=== PATIENT | female | born 1970 | race Caucasian/White ===

== ENCOUNTER → 2017-03-30 | Outpatient (CLI) | payer OTHER ==
[~2017-03-30] MED LIST: CARDIZEM CD240 MG PO; COZAAR 50 MG TA50 M2 PO
--- NOTE | ~2017-03-30 | EKG ---
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 DICKSON : 1970 Requested By: Antonio Baeza Order Number: [id number] MD: Santiago Roach Measurements Intervals [place] Rate: 85 P: 26 VT: 162 QRS: -38 QRSD: 85 T: 23 QT: 368 QTc: 438 Interpretive Statements Sinus rhythm Abnormal R-wave progression, late transition Left ventricular hypertrophy Compared to ECG 12/25/2016 10:32:23 No significant change was found Electronically Signed On 03-31-2017 8:08:00 CDT by Santiago Roach [email or web address] <ELECTRONICALLY SIGNED> By: Santiago Roach MD, [facility] 03/31/17 [phone] Santiago Roach MD, [facility] /EPI
[2017-03-30 16:52] LABS: ABSOLUTE NEUTROPHILS 7.2 thou/uL (1.4-8.2); EOSINOPHILS 1.6 % (0.0-3.0); HEMATOCRIT 37.2 % (37.0-47.0); HEMOGLOBIN 12.6 gm/dL (12.0-15.0); LYMPHOCYTES 26.4 % (24.0-44.0); MANUAL DIFF NO; MCH 29.3 pg (26.0-34.0); MCHC 33.8 g/dL (28.0-37.0); MCV 86.7 fL (80.0-100.0); MONOCYTES 7.7 % (1.0-8.0); PLATELET COUNT 346 thou/uL (150-400); POLYS 63.3 % (36.0-66.0); RBC 4.29 mil/uL (4.20-5.00); RDW 14.8 % (10.5-14.5); WBC 11.4 thou/uL (4.0-11.0)
== END ==
LOC: RAD 15:12
PROVIDERS: Surgery
DX: I10 Essential (primary) hypertension (principal); E66.01 Morbid (severe) obesity due to excess calories; G47.33 Obstructive sleep apnea (adult) (pediatric); K21.9 Gastro-esophageal reflux disease without esophagitis

== ENCOUNTER 2017-05-28 05:21 | Inpatient (IN) | payer OTHER ==
[~2017-05-28] VITALS: Ht 175.3 cm; Wt 149.2 kg
--- NOTE | ~2017-05-28 | S ---
[facility] [place] [address] SURGICAL PATH RPT PROCEDURE Name: NUSRAT SCOTT Room #: 307-P ADM IN M.R.#: [id number] Admission: 05/28/17 Date of : 70 Discharge: Report #: [id number] Path Case #: [id number] PATHOLOGY REPORT COLLECTION DATE: 05/28/2017 RECEIVED DATE: 05/28/2017 SUBMITTING PHYS: Dr. Antonio Baeza OTHER PHYS: SPECIMEN(S) RECEIVED: A.Gastric sleeve * * * * * * * * * * * * FINAL DIAGNOSIS: Stomach, gastric sleeve, partial sleeve gastrectomy: - No significant diagnostic abnormalities present, history of morbid obesity. PATHOLOGIST: Ya Hoover M.D. REPORT ELECTRONICALLY SIGNED BY: Ya Hoover M.D. DATE/TIME: 05/29/2017 15:19 * * * * * * * * * * * * GROSS PATHOLOGY: The specimen is received in formalin, labeled "Nusrat Scott, gastric sleeve". Received is elongated, partial gastrectomy specimen measuring 19.4 cm in length and up to 3.2 cm in diameter. A long stapled resection margin is identified. The serosal surface displays a wrinkled, pale pinktan appearance. Opening the specimen reveals a normal, pale tanpink, folded mucosa with no polypoid adhesions or solid masses identified. Character Actress sections are submitted in cassettes A1A3. (SNA; 05/28/2017) CLINICAL HISTORY: Morbid obesity INITIAL CPT CODE(S): A; 73802 Professional services performed by [facility] at [facility] [address] [place] [address] Technical services performed by [facility] at [address] [place] [address]. [facility] [address] [place] [address] SURGICAL PATH RPT PROCEDURE Name: NUSRAT SCOTT Room #: 307-P ADM IN M.R.#: [id number] Admission: 05/28/17 Date of : 70 Discharge: Report #: [id number] Path Case #: [id number] Farheen Granda [facility] [address] [address] PHONE: [phone] DIRECTOR: Sancho Stover M.D. * * * END OF REPORT * * *
[~2017-05-28 05:21] MED LIST changes: +ADULT ONE DAI200 MCG PO; +ZOLOFT50 MG PO
[2017-05-28 07:38] VITALS: BP 156/97
[2017-05-28 11:35] VITALS: BP 141/82
[2017-05-28 16:00] VITALS: BP 150/94
[2017-05-28 20:00] VITALS: BP 135/75
[2017-05-29 04:00] VITALS: BP 158/100
[2017-05-29 04:56] LABS: CALCIUM 7.9 mg/dL (8.5-10.1); CREATININE 0.8 mg/dL (0.6-1.0); POTASSIUM 3.8 mmol/L (3.5-5.1)
[2017-05-29 05:01] LABS: ABSOLUTE NEUTROPHILS 9.9 thou/uL (1.4-8.2); BASOPHILS 0.2 % (0.0-2.0); HEMATOCRIT 32.3 % (37.0-47.0); LYMPHOCYTES 11.8 % (24.0-44.0); MCH 29.7 pg (26.0-34.0); MCV 87.4 fL (80.0-100.0); MONOCYTES 8.5 % (1.0-8.0); PLATELET COUNT 306 thou/uL (150-400); POLYS 79.5 % (36.0-66.0); WBC 12.4 thou/uL (4.0-11.0)
[2017-05-29 05:03] LABS: MANUAL DIFF NO
[2017-05-29 08:00] VITALS: BP 147/74
[2017-05-29] MEDS ORDERED: ZOFRAN ODT4 MG DISSOLVE (08:50)
[2017-05-29] MEDS ORDERED: HYDROCODONE-ACE15 ML PO (08:50)
[2017-05-29 16:06] VITALS: BP 147/74
== END 2017-05-29 16:23 | disposition short-term general hospital (02) | DRG 621 ==
LOC: OR 05:21 → TBA 05:22 → GI 08:48 → EDSTATUS 08:59 → OR 08:59 → 3N 11:36 → OR 11:36 → 3N 05-29 16:23
PROVIDERS: Surgery
PROC: 0DJ08ZZ Inspection of Upper Intestinal Tract, Via Natural or Artificial Opening Endoscopic (ICD-10-PCS; principal; 2017-05-28)
PROC: 0DB64Z3 Excision of Stomach, Percutaneous Endoscopic Approach, Vertical (ICD-10-PCS; principal; 2017-05-28)
DX: E66.01 Morbid (severe) obesity due to excess calories (principal); K21.9 Gastro-esophageal reflux disease without esophagitis; I10 Essential (primary) hypertension; F32.9 Major depressive disorder, single episode, unspecified; G47.33 Obstructive sleep apnea (adult) (pediatric); M19.90 Unspecified osteoarthritis, unspecified site; Z79.899 Other long term (current) drug therapy; Z88.2 Allergy status to sulfonamides; Z68.42 Body mass index [BMI] 45.0-49.9, adult; Z88.1 Allergy status to other antibiotic agents; Z90.710 Acquired absence of both cervix and uterus; Z90.49 Acquired absence of other specified parts of digestive tract; Z81.8 Family history of other mental and behavioral disorders; Z80.9 Family history of malignant neoplasm, unspecified
CPT/HCPCS: 10795; 50010; 50101; 50222; 50249; 50555; 50558; 50739; 50740; 50962; 51436; 51437; 52182; 52265; 53307; 53311; 54022; 54118; 55245; 56462; 56525; 56526; 62110; 62900; 64031; 70005

== ENCOUNTER → 2018-08-09 | Outpatient (CLI) | payer OTHER ==
[~2018-08-09] VITALS: Ht 175.3 cm; Wt 104.3 kg
[~2018-08-09] MED LIST changes: +HYDROCODONE-ACE15 ML PO; +OMEPRAZOLE 20 M20 M1 PO; +VITAMIN D350000 UNIT PO; +WOMEN'S DAILY1 EAC2 PO; +ZOFRAN ODT4 MG DISSOLVE
--- NOTE | ~2018-08-09 | PATH ---
[facility] [place] [address] PATHOLOGY RPT PROCEDURE Name: BRANDINUSRAT Room #: REG ISAK AriasCorettaFatou.#: [id number] Admission: 08/09/18 Date of : 70 Discharge: Report #: [id number] Path Case #: [id number] [facility] Accession Number: [id number] . 01 Material submitted: . PART A: BX OF ANTRUM R/O H PYLORI PART B: BX OF DISTAL ESOPHGAUS R/O EOSINOPHILIC ESOPHAGITIS PART C: BX OF MID-ESOPHAGUS R/O EOSINOPHILIC ESOPHAGITIS . 01 Clinical history: . Pre-OP DX: Dysphagia, GERD Post-OP DX: Hiatal hernia, gastritis, esophagitis . 02 Diagnosis: A. Gastric mucosa, antrum, rule out H. pylori, endoscopic biopsy: - Mild chronic inflammation with features of reactive gastropathy. - Negative for intestinal metaplasia or atrophy. - Negative for Helicobacter pylori (properly-controlled immunohistochemical stain performed). . B. Gastric cardia-type mucosa, distal esophagus, endoscopic biopsy: - Moderate chronic inflammation. - No increase in eosinophils within the epithelium. . C. Squamous mucosa, mid-esophagus, endoscopic biopsy: - Mild esophagitis with 6-7 eosinophils / high power field (please see comment). - Negative for intestinal metaplasia or dysplasia. . (IUV:mml; 08/10/18) QL/08/10/2018 . 02 Comment: Examination of the esophageal biopsy tissue shows squamous mucosa with a marked number of intraepithelial eosinophils. Although eosinophils are commonly encountered in inflammation due to reflux esophagitis, the eosinophils in the present specimen are numerous, exceeding 5-6/hpf. Apart from reflux esophagitis, potential etiologies for the histologic pattern include allergic and collagen vascular diseases, fungal or parasitic infections, and eosinophilic esophagitis (idiopathic). Please correlate with clinical and endoscopic findings. . (IUV:mml; 08/10/18) . 02 Electronically signed: . Ya Hoover MD, Pathologist NPI- [id number] [place] [address] PATHOLOGY RPT PROCEDURE Name: NUSRAT SCOTT Room #: REG CLLesly Siegel#: [id number] Admission: 08/09/18 Date of : 70 Discharge: Report #: [id number] Path Case #: [id number] . 01 Gross description: . A. Received in formalin labeled "Scott, Nusrat, BX of antrum, rule out H. pylori," are 2 segments of sin soft tissue measuring 0.8 x 0.3 x 0.2 cm in aggregate dimensions and ranging from 0.3 to 0.5 cm in maximum dimension. The specimen is entirely submitted in cassette A1. . B. Received in formalin labeled "Nusrat Scott, BX of distal esophagus, rule out EOE," is a single segment of sin soft tissue measuring 0.5 cm in maximum dimension. The specimen is entirely submitted in cassette B1. . C. Received in formalin labeled "Nusrat Scott, BX of mid esophagus, rule out EOE," are 3 segments of sin soft tissue measuring 0.6 x 0.4 x 0.1 cm in aggregate dimensions and ranging from 0.3 to 0.5 cm in maximum dimension. The specimen is submitted entirely in cassette C1. (TSD; 08/09/2018) TOB/TOB . 02 Pathologist provided ICD-10: K29.50, K31.9, K20.9 . 02 CPT . 548977, 147327, 041847, L31552 Specimen Comment: A courtesy copy of this report has been sent to Specimen Comment: [phone], , . Specimen Comment: Report sent to , and Specimen Comment: A duplicate report has been generated due to demographic updates. Performed at: [address] [facility], [place], [place] [id number] MD Silver Lares MD Phone: [phone] Performed at: [address] [facility] [id number] MD Ya Hoover MD Phone: [phone]
== END | disposition home or self-care (01) ==
LOC: GI 11:56
DX: K29.50 Unspecified chronic gastritis without bleeding (principal); K21.0 Gastro-esophageal reflux disease with esophagitis; K44.9 Diaphragmatic hernia without obstruction or gangrene; I10 Essential (primary) hypertension; G47.33 Obstructive sleep apnea (adult) (pediatric); E66.01 Morbid (severe) obesity due to excess calories; Z88.2 Allergy status to sulfonamides; Z98.84 Bariatric surgery status; Z88.8 Allergy status to other drugs, medicaments and biological substances; Z90.710 Acquired absence of both cervix and uterus; Z98.890 Other specified postprocedural states; Z79.899 Other long term (current) drug therapy; Z68.42 Body mass index [BMI] 45.0-49.9, adult
CPT/HCPCS: 62110; 62900

== ENCOUNTER → 2018-10-21 | Outpatient (CLI) | payer OTHER | LOC: RAD 08:30 | DX: K44.9 Diaphragmatic hernia without obstruction or gangrene (principal); K21.9 Gastro-esophageal reflux disease without esophagitis ==

== ENCOUNTER 2018-11-25 05:34 | Day surgery (SDC) | payer OTHER ==
[~2018-11-25] VITALS: Ht 175.3 cm; Wt 110.1 kg
[~2018-11-25 05:34] MED LIST changes: +FLEXERIL PO; +PROTONIX40 M1 PO
[2018-11-25 07:26] VITALS: BP 139/88
[2018-11-25 15:30] VITALS: BP 155/104
[2018-11-25 19:04] VITALS: BP 138/93
[2018-11-26 00:20] VITALS: BP 123/65
--- NOTE | 2018-11-26 03:26 | NUR ---
ASSUME CARE 1900. PT/VITALSS TABLE. INTERMITTENT ABDO PAIN NOTED. MEDS FOR RELIEF. UP AD PEEWEE. ASSESSMETN CHARTED. PROGRESSING WELL WITH POC. SURGERY SITES CDI. PLAN IS POSSIBLE DISCHARGE TODAY. WILL CONTINUE TO FOLLOW WITH POC
[2018-11-26 04:40] VITALS: BP 113/62
[2018-11-26 05:20] LABS: HEMATOCRIT 33.4 % (37.0-47.0); HEMOGLOBIN 11.5 gm/dL (12.0-15.0); MCH 30.7 pg (26.0-34.0); MCHC 34.3 g/dL (28.0-37.0); MCV 89.5 fL (80.0-100.0); RBC 3.73 mil/uL (4.20-5.00); RDW 14.1 % (10.5-14.5); WBC 10.4 thou/uL (4.0-11.0)
[2018-11-26 05:34] LABS: CALCIUM 8.5 mg/dL (8.5-10.1); CREATININE 0.7 mg/dL (0.6-1.0); POTASSIUM 4.4 mmol/L (3.5-5.1)
[2018-11-26 07:05] VITALS: BP 114/67
[2018-11-26 12:23] VITALS: BP 114/67
--- NOTE | 2018-11-26 12:48 | NUR ---
ASSESSMENT COMPLETED. NO S/SX OF CARDIAC OR RESP DISTRESS. IV X2 REMOVED. DISCHARGE INSTRUTIONS GIVEN TO PT AND DAUGHTER. DENIES COMPLAINTS. WILL CONTINUE TO MONITOR.
== END 2018-11-26 13:11 | disposition home or self-care (01) ==
LOC: TBA 05:34 → OR 05:34 → TBA 05:35 → OR 09:14 → 2N 15:38 → ENTRNSPT 16:36 → DELTRNSPT 16:37 → ENTRNSPT 11-26 12:46 → EDTRNSPTSTS 11-26 12:48 → OR 11-26 13:11
PROVIDERS: Surgery
DX: K44.9 Diaphragmatic hernia without obstruction or gangrene (principal); K21.9 Gastro-esophageal reflux disease without esophagitis; G43.909 Migraine, unspecified, not intractable, without status migrainosus; E66.01 Morbid (severe) obesity due to excess calories; Z68.42 Body mass index [BMI] 45.0-49.9, adult; Z98.890 Other specified postprocedural states; Z90.3 Acquired absence of stomach [part of]; Z88.2 Allergy status to sulfonamides; Z88.8 Allergy status to other drugs, medicaments and biological substances; Z90.710 Acquired absence of both cervix and uterus; Z79.899 Other long term (current) drug therapy; Z87.19 Personal history of other diseases of the digestive system
CPT/HCPCS: 10797; 50010; 50101; 50249; 50386; 50555; 50558; 50962; 51297; 51437; 52182; 52265; 53307; 54022; 54118; 55326; 55430; 56462; 56525; 56526; 56531; 57092; 57215; 62110; 62900; 70005

== ENCOUNTER → 2019-01-19 | Outpatient (CLI) | payer OTHER | LOC: ULTRA 07:56 | DX: R16.0 Hepatomegaly, not elsewhere classified (principal); R10.11 Right upper quadrant pain ==

== ENCOUNTER → 2019-01-31 | Outpatient (CLI) | payer OTHER ==
[~2019-01-31] MED LIST changes: +HYDROCODONE-AP1 EAC6 PO
== END ==
LOC: NUC 08:55
DX: R10.9 Unspecified abdominal pain (principal); R19.7 Diarrhea, unspecified

== ENCOUNTER 2019-02-10 05:43 | Observation (INO) | payer OTHER ==
[~2019-02-10] VITALS: Ht 175.3 cm; Wt 104.3 kg
[~2019-02-10 05:43] MED LIST changes: -HYDROCODONE-AP1 EAC6 PO
[2019-02-10 12:54] VITALS: BP 144/97
[2019-02-10 18:00] VITALS: BP 160/106
[2019-02-10 18:30] VITALS: BP 169/99
[2019-02-10 19:00] VITALS: BP 167/102
[2019-02-10 21:39] VITALS: BP 164/103
--- NOTE | 2019-02-10 22:55 | NUR ---
Pt is post-op lap choly. Am rn states pt came to unit from [facility] 1730. 2L O2. Lap sites clean and intact. Bp elevated. Per rn nurse report, consult hospitalist for bp management. Braze Operator solar sales consultant notified. Pain controlled with prn pain meds. Antiemetic administered. Report given to kayla rn.
--- NOTE | 2019-02-11 02:33 | NUR ---
ASSUMED PT CARE AT AROUND 2300 HRS. PT IN BED. PAIN CONTROLLED WITH FENTANYL IVP. PT VOIDING PER BATHROOM. NAUSEA WELL CONTROLLED. LAP SITES LOOK OKAY.PT HAS ICE DEMARIO OVER STOMACH.AFEBRILE.SCDS IN PLACE. WILL CONTINUE WITH POC.
[2019-02-11 07:19] VITALS: BP 159/90
[2019-02-11 09:51] LABS: HEMATOCRIT 39.7 % (37.0-47.0); HEMOGLOBIN 13.2 gm/dL (12.0-15.0); MCH 30.2 pg (26.0-34.0); MCHC 33.3 g/dL (28.0-37.0); MCV 90.6 fL (80.0-100.0); RBC 4.38 mil/uL (4.20-5.00); RDW 13.8 % (10.5-14.5); WBC 14.8 thou/uL (4.0-11.0)
[2019-02-11 09:58] LABS: CALCIUM 8.8 mg/dL (8.5-10.1); CREATININE 0.6 mg/dL (0.6-1.0); MAGNESIUM 1.8 mg/dL (1.8-2.4); POTASSIUM 3.7 mmol/L (3.5-5.1)
--- NOTE | 2019-02-11 12:12 | NUR ---
Pt in bed alert and oriented x4 but appeared to be depressed.Assessment completed.vss but elevated bp noted.c/o abdominal pain rated 8/10.Fentanyl ivp given as ordered.Dr Simmons notified on rounds. Attempt made to ambulate pt in hallways but pt was dizzy when up.Pt was assisted back to bed.Will try to walk pt later today.Pt tolerated clear liq.No further c/o at present.Will continue to monitor.
--- NOTE | 2019-02-11 16:06 | PATH ---
[facility] [address] [place] [address] PATHOLOGY RPT PROCEDURE Name: NUSRAT SCOTT Room #: 421-P [facility] Blanca Siegel#: [id number] ������������������ Admission: 02/10/19 ������������������ Date of : 70 Discharge: Report #: [id number] Path Case #: [id number] [facility] Accession Number: [id number] . 01 Material submitted: . GALLBLADDER . 01 Clinical history: . Cholelithiasis. . 02 Diagnosis: Gallbladder, cholecystectomy: - Mild chronic cholecystitis. - Cholelithiasis. (IUV:rubber tubing backer; 02/11/2019) MBR/02/11/2019 . 02 Electronically signed: . Ya Hoover MD, Pathologist NPI- [id number] . 01 Gross description: . Received in formalin labeled "Nusrat Scott, gallbladder" is a previously opened cholecystectomy specimen measuring 6.9 x 3.5 x 1.5 cm. The serosa is sin-green and smooth. The mucosa is red-green and velvety without polyps or masses. The average wall thickness of 0.2 cm. Within the container are multiple black multifaceted calculi measuring in aggregate 1.0 x 1.0 x 0.2 cm, and ranging from 0.1-0.3 cm in greatest dimension. Production Corrugator sections of the fundus and body and the cystic duct margin are submitted in cassette A1. ([facility]; 02/10/2019) SYC/SYC . 02 Pathologist provided ICD-10: K80.10 . 02 CPT . 157380 Specimen Comment: A courtesy copy of this report has been sent to Specimen Comment: [phone], . Specimen Comment: Report sent to / DR DEMARCO Performed at: [address], [place] [id number] MD Silver Lares MD Phone: [phone] Performed at: [address] [id number] [address] [address] PATHOLOGY RPT PROCEDURE Name: NUSRAT SCOTT Room #: 421-P ADM Blanca Siegel#: [id number] ������������������ Admission: 02/10/19 ������������������ Date of : 70 Discharge: Report #: [id number] Path Case #: [id number] MD Ya Hoover MD Phone: [phone]
[2019-02-11] MEDS ORDERED: HYDROCODONE-AP1 EAC6 PO (16:09)
[2019-02-11 16:29] VITALS: BP 159/90
[2019-02-12] MEDS ORDERED: ZOFRAN ODT4 MG DISSOLVE (12:06)
--- NOTE | 2019-02-12 18:30 | O ---
[facility] [place] [address] OPERATIVE REPORT Name: NUSRAT PAZ Room #: 421-P [facility] Blanca Siegel#: [id number] Admission: 02/10/19 ������������������ Attend Phys: Lj Pierre MD Discharge: 02/11/19 ������������������ Date of : 70 Report #: [id number] THIS REPORT FOR: //name// CC: Ugo Zhang DATE OF SERVICE: 02/10/2019 PREOPERATIVE DIAGNOSIS: Acalculous cholecystitis. POSTOPERATIVE DIAGNOSIS: Cholecystitis with cholelithiasis. PROCEDURE: Laparoscopic cholecystectomy, attempted cholangiogram. SURGEON: Lj Pierre MD. ANESTHESIA: General anesthesia. COMPLICATIONS: None. ESTIMATED BLOOD LOSS: 5 mL. PROCEDURE NOTE: With the patient under general anesthesia, abdomen was prepped and draped in sterile fashion. IV antibiotic was administered. An infraumbilical curvilinear incision was made measuring about 2 cm. Fascia was identified, grasped with hemostat. Fascia was then opened under visualization. 0 Vicryl suture placed on the fascia edges. The abdominal wall was lifted anteriorly. Veress needle was then placed through peritoneum. Abdominal cavity was insufflated with CO2 without difficulty. After creating pneumoperitoneum, 11 mm trocar was placed into the pneumoperitoneum. No harm to underlying tissue. Two 5-mm trocars were placed in right upper quadrant and a 5-mm trocar right epigastrium. Prior to placing the lateral 5 mm trocar, there was some adhesion of the hepatic flexure that was to the wall. This was divided without difficulty. Gallbladder was lifted over the liver. The gallbladder contained quite dense adhesion on it. This is chronic inflammation. This was freed without difficulty. Proximal gallbladder was then isolated. Appears to have a fairly long cystic duct. Common duct was partially visualized underneath the peritoneum and had a stain of bile color. Dissection was carried out isolating the cystic duct. There is some fibrosis in this area. The clips were placed in junction of cystic duct to the gallbladder. Opening was made in the cystic duct and on viewing of this area, cholangiogram catheter was difficult to place due to narrowing here. The cystic duct was then further cleaned proximally. A second opening was made in the cystic duct. I was able to see bile coming out of this opening, but again the opening was too small to cannulate with Taut catheter. Cholangiogram was abandoned. Proximal part of cystic duct was then [facility] [address] [place] [address] OPERATIVE REPORT Name: BRANDINUSRAT ELOISA Room #: 421-P LINO Siegel#: [id number] Admission: 02/10/19 ������������������ Attend Phys: Lj Pierre MD Discharge: 02/11/19 ������������������ Date of : 70 Report #: [id number] clipped x 2. Cystic duct was then divided. There are small vessels that were clipped adjacent to the cystic duct. Main artery was then found. This was clipped x 2 proximally, 1 distally and then divided. Gallbladder was free. There is some edema in the gallbladder. Along the posterior bed of liver, there is second vessel that was found posteriorly. This was isolated, clipped x 2 proximally and then divided. Gallbladder was freed rest of the way. Gallbladder was placed in a specimen bag. The gallbladder was retrieved with the specimen bag. Gallbladder was opened up off the field and the bile did contain multiple black small stones. There was also cholesterolosis in the wall. Liver bed was checked, hemostasis excellent. Clips were intact. Irrigation was aspirated out. CO2 and trocars then removed. The fascia defect infraumbilically was closed with [id number] 0 Vicryl x 2. Skin was irrigated, closed with 5-0 PDS. Steri-Strip, Band-Aids applied. The patient was taken to recovery room, tolerated the procedure well. ��������������������������������������������� <ELECTRONICALLY SIGNED> ���������������������������������������� By: Lj Pierre MD ��������������������������������������������� 02/12/19 1830 [id number] Lj Pierre MD /nt
--- NOTE | 2019-02-12 18:30 | H ---
[facility] [place] [address] HISTORY AND PHYSICAL Name: NUSRAT PAZ Room #: 421-P [facility] Blanca Siegel#: [id number] Admission: 02/10/19 ������������������ Attend Phys: Lj Pierre MD Discharge: 02/11/19 ������������������ Date of : 70 Report #: [id number] THIS REPORT FOR: //name// CC: Ugo Zhang DATE OF SERVICE: 02/10/2019 PREOPERATIVE DIAGNOSIS: Cholecystitis with cholelithiasis. HISTORY OF PRESENT ILLNESS: The patient is a 48-year-old who in 2016 had a gastric sleeve procedure. The patient did lose about 100 pounds. In 11/2018, the patient had a repair of the hiatal hernia and LINX procedure. A couple of weeks after surgery she started to experience upper quadrant pain radiating to the left shoulder. The patient also had diarrhea after eating. Occasionally, she has loose stools up to 4-5 times a day. The patient also has complained of nausea. No vomiting. Her left-sided pain is worse after eating. The patient did have an ultrasound performed. The patient's ultrasound did not show any gallstones. The spleen was visualized and nothing was seen in the left upper quadrant. The patient subsequently had a HIDA scan. The PIPIDA scan did cause pain. Her pain started on the right side, then went into the left side and the left shoulder. Her ejection fraction was markedly abnormal at only 5%. The patient's pain usually lasts for 20-30 minutes, then she will have diarrhea. The pain then gradually subsided. She did have reflux type symptoms prior to hiatal hernia surgery and did have documented esophagitis. The patient is found to have gallbladder disease. She is recommended to undergo laparoscopic cholecystectomy. PAST MEDICAL HISTORY: The patient has obesity, which has improved after her gastric sleeve operation. She did have high blood pressure, but that resolved after the bariatric surgery. No history of diabetes, no history of heart disease. No history of liver or kidney disease. No history of bleeding disorder, no history of blood clot. PAST SURGICAL HISTORY: Hysterectomy in 2009, gastric sleeve 2016 and 11/2018 hiatal hernia repair. FAMILY HISTORY: Father had heart failure, COPD, had common variable immune deficiency. Mother has history of fibromyalgia, arthritis, dementia. Sibling with common variable immune deficiency. 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 She does not smoke, does not drink. REVIEW OF SYSTEMS: No chest pain, shortness of breath. Only symptom is [facility] [address] [place] [address] HISTORY AND PHYSICAL Name: NUSRAT PAZ [facility] [id number] Admission: 02/10/19 ������������������ Attend Phys: Lj Pierre MD Discharge: 02/11/19 ������������������ Date of : 70 Report #: [id number] abdominal symptoms as described above. PHYSICAL EXAMINATION: GENERAL: The patient is a middle-aged female, in no acute distress. The patient is alert and oriented. HEENT: Pupils react to light. Extraocular muscles are intact. Oropharynx is clear. NECK: Soft and supple, no masses, no JVD. LUNGS: Clear to auscultation. HEART: Regular rate and rhythm. No murmur or gallop. ABDOMEN: Recent laparoscopic trocar site identified. The patient is quite tender in the right upper quadrant. Positive Arteaga sign. When palpating the right upper quadrant, it does refer to her left side. There is no abdominal mass or ascites. EXTREMITIES: No cyanosis, clubbing or edema. IMPRESSION: The patient is a 48-year-old with left upper quadrant pain going to the left shoulder. This is associated with food. The patient did not have any stones. She did have a PIPIDA scan with Kinevac injection that only showed a 5% ejection fraction and caused pain on the right side, which then moved to the left shoulder area. No stone seen on ultrasound. Clinically, it is consistent with a diseased gallbladder. The patient does have strong family history of gallbladder disease. RECOMMENDATION: The patient is recommended to undergo laparoscopic cholecystectomy. Procedure was discussed. Risk of bleeding, infection, common bile duct injury was discussed. The patient understands the procedure, risks involved and wishes to proceed. ��������������������������������������������� <ELECTRONICALLY SIGNED> ���������������������������������������� By: Lj Pierre MD ��������������������������������������������� 02/12/19 1830 28 Lj Pierre MD /nt
== END 2019-02-11 17:25 | disposition home or self-care (01) ==
LOC: OR 05:43 → TBA 05:43 → OR 07:28 → 4E 18:01 → OR 18:02 → 4E 02-11 17:25
PROVIDERS: Internal Medicine; ADMIT Surgery
DX: K80.10 Calculus of gallbladder with chronic cholecystitis without obstruction (principal); K21.9 Gastro-esophageal reflux disease without esophagitis; E66.01 Morbid (severe) obesity due to excess calories; I51.9 Heart disease, unspecified; E78.5 Hyperlipidemia, unspecified; Z90.710 Acquired absence of both cervix and uterus; Z90.89 Acquired absence of other organs; Z98.890 Other specified postprocedural states; Z88.2 Allergy status to sulfonamides; Z88.8 Allergy status to other drugs, medicaments and biological substances; Z87.11 Personal history of peptic ulcer disease; Z68.42 Body mass index [BMI] 45.0-49.9, adult
CPT/HCPCS: 10783; 50010; 50101; 50411; 50555; 50558; 51489; 53307; 53310; 53312; 55245; 55317; 56462; 56525; 56526; 62110; 62900; 70005

== ENCOUNTER 2019-02-12 11:58 | Inpatient (IN) | payer OTHER ==
[~2019-02-12] VITALS: Ht 175.3 cm; Wt 104.3 kg
[2019-02-12 11:58] VITALS: BP 187/100
[~2019-02-12 11:58] MED LIST changes: +HYDROCODONE-AP1 EAC6 PO
[2019-02-12] MEDS ORDERED: ZOFRAN ODT4 MG DISSOLVE (12:06)
[2019-02-12 12:28] LABS: ABSOLUTE NEUTROPHILS 7.5 thou/uL (1.4-8.2); BASOPHILS 0.4 % (0.0-2.0); EOSINOPHILS 1.7 % (0.0-3.0); HEMATOCRIT 37.2 % (37.0-47.0); HEMOGLOBIN 12.7 gm/dL (12.0-15.0); LYMPHOCYTES 10.7 % (24.0-44.0); MCH 31.1 pg (26.0-34.0); MCHC 34.1 g/dL (28.0-37.0); MONOCYTES 8.7 % (1.0-8.0); PLATELET COUNT 239 thou/uL (150-400); POLYS 78.5 % (36.0-66.0); RBC 4.08 mil/uL (4.20-5.00); RDW 14.3 % (10.5-14.5); WBC 9.6 thou/uL (4.0-11.0)
[2019-02-12 12:35] LABS: CALCIUM 8.7 mg/dL (8.5-10.1); CREATININE 0.7 mg/dL (0.6-1.0); POTASSIUM 3.4 mmol/L (3.5-5.1)
[2019-02-12 12:41] LABS: ALBUMIN 3.2 g/dL (3.4-5.0); TOTAL BILIRUBIN 1.7 mg/dL (<0.1-1.0); TOTAL PROTEIN 6.5 g/dL (6.4-8.2)
[2019-02-12 17:56] VITALS: BP 164/99
[2019-02-12 18:20] VITALS: BP 151/103
--- NOTE | 2019-02-12 18:31 | NUR ---
ATTEMPTED TO GIVE REPORT; "NURSE IS IN A ROOM AND WILL CALL YOU BACK" IS WHAT I WAS TOLD
[2019-02-12 20:06] VITALS: BP 152/103
--- NOTE | 2019-02-13 02:06 | NUR ---
PT GIVEN FENTANLY FOR PAIN PT WAS ABLE TO GET SOME SLEEP DURING THE NIGHT NO ISSUES OVERNIGHT PT USED CALL LIGHT EFFECTIVELY.
[2019-02-13 04:00] VITALS: BP 152/104
[2019-02-13 05:16] LABS: ABSOLUTE NEUTROPHILS 5.4 thou/uL (1.4-8.2); BASOPHILS 0.8 % (0.0-2.0); EOSINOPHILS 3.2 % (0.0-3.0); HEMOGLOBIN 12.3 gm/dL (12.0-15.0); LYMPHOCYTES 20.5 % (24.0-44.0); MCH 30.4 pg (26.0-34.0); MCHC 33.4 g/dL (28.0-37.0); MCV 91.1 fL (80.0-100.0); MONOCYTES 8.6 % (1.0-8.0); PLATELET COUNT 261 thou/uL (150-400); POLYS 66.9 % (36.0-66.0); RBC 4.06 mil/uL (4.20-5.00); RDW 14.2 % (10.5-14.5); WBC 8.1 thou/uL (4.0-11.0)
[2019-02-13 05:28] LABS: CALCIUM 8.6 mg/dL (8.5-10.1); CREATININE 0.6 mg/dL (0.6-1.0); POTASSIUM 3.4 mmol/L (3.5-5.1)
[2019-02-13 05:32] LABS: DIRECT BILIRUBIN 0.4 mg/dL (<0.1-0.3); MAGNESIUM 1.8 mg/dL (1.8-2.4); TOTAL BILIRUBIN 1.3 mg/dL (<0.1-1.0); TOTAL PROTEIN 6.3 g/dL (6.4-8.2)
[2019-02-13 07:45] VITALS: BP 148/104
[2019-02-13] MEDS ORDERED: FENTANYL 0.50 MCG/ML IV PUSH (10:57)
[2019-02-13] MEDS ORDERED: PROTONIX IV40 MG IV PUSH (10:57)
[2019-02-13] MEDS ORDERED: ONDANSETRON HCL4 M1 IV PUSH (10:57)
[2019-02-13 13:49] VITALS: BP 147/96
--- NOTE | 2019-02-13 14:39 | NUR ---
XFER TO [facility] AT 0700, VSS, AFEBRILE. PAIN MANAGED BY MEDS. PT BLOOD SUGAR WAS LOW, PROVIDER AWARE, ORDER CARRIED OUT. PT IS XFER TO [facility] FOR FURHTER MANAGEMENT. REPORT CALLED TO GERALDINE. DC ENVELOPE PROVIDED TO PORTIA CHEN. IV INTACT ON DC.
== END 2019-02-13 15:00 | disposition short-term general hospital (02) | DRG 395 ==
LOC: ER 11:58 → EROBS 17:20 → 4W 19:26
PROVIDERS: Nurse Practitioner Family; ADMIT Internal Medicine
DX: K91.89 Other postprocedural complications and disorders of digestive system (principal); Y83.6 Removal of other organ (partial) (total) as the cause of abnormal reaction of the patient, or of later complication, without mention of misadventure at the time of the procedure; I10 Essential (primary) hypertension; K21.9 Gastro-esophageal reflux disease without esophagitis; G43.909 Migraine, unspecified, not intractable, without status migrainosus; G47.33 Obstructive sleep apnea (adult) (pediatric); Z90.710 Acquired absence of both cervix and uterus; Z98.84 Bariatric surgery status; Z79.899 Other long term (current) drug therapy; Z88.1 Allergy status to other antibiotic agents; Z88.2 Allergy status to sulfonamides; Y92.89 Other specified places as the place of occurrence of the external cause
CPT/HCPCS: 10047

== ENCOUNTER 2019-02-16 10:21 | Inpatient (IN) | payer OTHER ==
[~2019-02-16] VITALS: Ht 175.3 cm; Wt 104.3 kg
--- NOTE | ~2019-02-16 | HC ---
[facility] [place] [address] CONSULTATION Name: BRANDINUSRAT ELOISA Room #: 209-P ADM IN M.R.#: [id number] Admission: 02/16/19 ������������������ Attend Phys: Graham Argueta MD Discharge: ������������������ Date of : 70 Report #: [id number] THIS REPORT FOR: //name// CC: Ugo Argueta DATE OF SERVICE: 02/16/2019 CHIEF COMPLAINT: Abdominal pain. 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 The patient underwent laparoscopic cholecystectomy for acalculous cholecystitis on 02/10/[address] Pierre. She was discharged home after uneventful cholecystectomy for acute cholecystitis. On 02/10/2019, cholangiogram was attempted at that time; however, the cystic duct was found to be too small and he was not able to fasten the cholangiogram catheter. In the early postoperative period, the patient was noted to have bile leak and the patient underwent ERCP and stenting of the bile duct at [facility]. There were no drains placed. The patient presented back to the Emergency with increasing abdominal pain today. The patient had a CT scan of the abdomen and pelvis that was done that showed a significant amount of fluid collection within the abdomen. Some of the mass large as 11 x cm. Another fluid collection in the right paracolic gutter 8.4 x 10.1 cm with some features of loculation. PAST MEDICAL HISTORY: History of gastroesophageal reflux disease, obesity. PAST SURGICAL HISTORY: History of gastric sleeve, history of laparoscopic cholecystectomy. LINX placement and hiatal hernia repair in 11/[address] [place]. Postop biliary leak with CBD stenting on 02/14/2019. CURRENT MEDICATIONS: Hydrocodone, Zofran. ALLERGIES: ALLERGIC TO SULFA AND LEVAQUIN. REVIEW OF SYSTEMS: A 10-point review of system was taken and is negative except as noted in HPI. PHYSICAL EXAMINATION: GENERAL: The patient appears to be lethargic and appears to be in mild discomfort. HEENT: Normocephalic, atraumatic. She is anicteric. CARDIOVASCULAR: Heart sounds are regular in rate and rhythm. No murmurs or added sounds. RESPIRATORY: Breath sounds are bilaterally equal and clear to auscultation. [facility] [address] [place] [address] CONSULTATION Name: BRANDINUSRAT Room #: 209-P [facility] IN .R.#: [id number] Admission: 02/16/19 ������������������ Attend Phys: Graham Argueta MD Discharge: ������������������ Date of : 70 Report #: [id number] ABDOMEN: Soft. There is mild to moderate tenderness in the right side of the abdomen. No rebound tenderness or guarding. EXTREMITIES: No cyanosis or pedal edema. LABORATORY DATA: On the day of admission, white cell count is 11.6, hemoglobin was 13, BUN and creatinine was 6 and 0.6. Liver function test showed a bilirubin of 1.5, AST of 17, ALT of 29, alkaline phosphatase of 192. CT scan findings as noted above. ASSESSMENT AND PLAN: The patient is a 48-year-old female who has features of multiple abdominal fluid collections, likely from the bile leak that she has. I do not think that she has an ongoing bile leak at present, she is awaiting a HIDA scan, shall have Interventional Radiology place drains in this fluid collection. Shall keep her n.p.o., IV fluids and on antibiotics. We will continue to follow her closely. Thank you so much for allowing me to participate in the care of this patient. ��������������������������������������������� ���������������������������������������� By: ��������������������������������������������� 0942 0235 Marcin Mora MD /nt
[~2019-02-16 10:21] MED LIST changes: +FENTANYL 0.50 MCG/ML IV PUSH; +ONDANSETRON HCL4 M1 IV PUSH; +PROTONIX IV40 MG IV PUSH
[2019-02-16 10:22] VITALS: BP 175/109
[2019-02-16] MEDS ORDERED: NORCO 5-325 TA1 EACH PO (10:36)
[2019-02-16] MEDS ORDERED: ZOFRAN ODT4 MG DISSOLVE (10:36)
[2019-02-16 10:43] LABS: ABSOLUTE NEUTROPHILS 10.1 thou/uL (1.4-8.2); BASOPHILS 0.3 % (0.0-2.0); EOSINOPHILS 1.1 % (0.0-3.0); HEMATOCRIT 38.9 % (37.0-47.0); LYMPHOCYTES 4.4 % (24.0-44.0); MCH 30.4 pg (26.0-34.0); MCHC 33.6 g/dL (28.0-37.0); MCV 90.6 fL (80.0-100.0); MONOCYTES 7.1 % (1.0-8.0); PLATELET COUNT 304 thou/uL (150-400); POLYS 87.1 % (36.0-66.0); RBC 4.29 mil/uL (4.20-5.00); RDW 13.8 % (10.5-14.5); WBC 11.6 thou/uL (4.0-11.0)
[2019-02-16 10:48] LABS: CALCIUM 8.9 mg/dL (8.5-10.1); CREATININE 0.6 mg/dL (0.6-1.0); POTASSIUM 3.9 mmol/L (3.5-5.1)
[2019-02-16 10:54] LABS: ALBUMIN 2.6 g/dL (3.4-5.0); TOTAL BILIRUBIN 1.5 mg/dL (<0.1-1.0); TOTAL PROTEIN 6.2 g/dL (6.4-8.2)
--- NOTE | 2019-02-16 12:08 | NUR ---
PT TO CT VIA CART.
--- NOTE | 2019-02-16 12:19 | NUR ---
PT BACK TO ROOM FROM CT.
--- NOTE | 2019-02-16 13:00 | NUR ---
PER GIGI, LAB CALLED TO OBTAIN BC.
--- NOTE | 2019-02-16 13:30 | NUR ---
LAB AT BEDSIDE, X2 COLLECTED.
[2019-02-16 14:30] VITALS: BP 165/109
[2019-02-16 15:07] VITALS: BP 152/100
[2019-02-16 15:26] VITALS: BP 150/95
[2019-02-16 15:33] LABS: INR 1.1; PROTIME 11.3 Seconds (9.3-11.4)
--- NOTE | 2019-02-16 18:10 | NUR ---
PT CONTINUES TO HAVE ABD PAIN. PAIN MEDS GIVEN PER EMAR. PT STATES THE MEDICATION "HELPS SOME." ST ON THE MONITOR. PT RESTING IN BED WITH CALL LIGHT IN REACH. WILL CONTINUE TO MONITOR.
--- NOTE | 2019-02-16 18:12 | NUR ---
VASCULAR ACCESS CONSULTED FOR A PICC FOR ACCESS FOR ABX AND POST OP COMPLICATION IV MEDS. A 4FRDBLPICC PLACED RUABASILIC PER HOSPITAL P&P, PLEASE SEE THE INSERTION NI FOR DETAILS.
[2019-02-16 19:28] VITALS: BP 153/90
[2019-02-17] VITALS (12 sets, daily range): BP systolic 116–147; BP diastolic 64–85
--- NOTE | 2019-02-17 08:31 | NUR ---
pt moved to room 209 for better telemtry monitoring, daughter at bedside, fluids infusing thru r upper picc, st on monitor, prn metoprlol given and hr decreased from 140's to low 100's, sbp 130's, and some low grade fvrs thru the noc, prn pain meds and nausea meds given as needed, allowing pt a few hours of rest thru the noc, pt up to br adlib with 2 moderate bm's, plan to go to ir today for drain placements. report given to next shift to con't with ppoc.
[2019-02-17 10:01] LABS: ABSOLUTE NEUTROPHILS 16.1 thou/uL (1.4-8.2); BASOPHILS 0.6 % (0.0-2.0); EOSINOPHILS 1.5 % (0.0-3.0); HEMATOCRIT 34.1 % (37.0-47.0); HEMOGLOBIN 11.4 gm/dL (12.0-15.0); MCH 30.3 pg (26.0-34.0); MCHC 33.3 g/dL (28.0-37.0); MCV 91.1 fL (80.0-100.0); MONOCYTES 6.8 % (1.0-8.0); PLATELET COUNT 285 thou/uL (150-400); POLYS 88.1 % (36.0-66.0); RBC 3.75 mil/uL (4.20-5.00); RDW 14.1 % (10.5-14.5); WBC 18.2 thou/uL (4.0-11.0)
[2019-02-17 10:14] LABS: ALBUMIN 2.1 g/dL (3.4-5.0); CALCIUM 8.4 mg/dL (8.5-10.1); CREATININE 0.6 mg/dL (0.6-1.0); MAGNESIUM 1.5 mg/dL (1.8-2.4); POTASSIUM 3.5 mmol/L (3.5-5.1); TOTAL BILIRUBIN 1.4 mg/dL (<0.1-1.0); TOTAL PROTEIN 5.7 g/dL (6.4-8.2)
--- NOTE | 2019-02-17 11:22 | NUR ---
REMAINED NPO FOR PLACEMENT OF ABDOMINAL DRAINS. ALERT/ORIENTED, ABDOMINAL DISCOMFORT RADIATING FROM LUQ TO RLQ, HYDROMORPHONE IV GIVEN WITH PARTIAL PAIN RELIEF, PT ATTEMPTING TO REST INTERMITTENTLY. ST- RATE 118 UP TO 130 WITH ACTIVITY, ROOM AIR, ENCOURAGING DEEP BREATHING/COUGH, ZOFRAN GIVEN FOR NAUSEA. SEE ASSESSMENT FOR DETAILS. FAMILY PRESENT PROVIDING SUPPORT. JUST TRANSFERRED PER WHEELCHAIR TO INTERVENTIONAL RADIOLOGY.
--- NOTE | 2019-02-17 19:15 | NUR ---
SHIFT SUMMARY: DELIGHTFUL PT DESPITE HER DISCOMFORT. PARTIAL PAIN RELIEF WITH IV PAIN MED. ST, HR UP TO 130'S WHEN PT GETTING OUT OF BED, THEN AMBULATING, METOPROLOL IV GIVEN, ROOM AIR, ENCOURAGING DEEP BREATHING/COUGH, CLEAR LIQUID SCANT AMOUNT WELL TOLERATED, R MID/UPPER ABDOMINAL DRAIN WITH BILE DRAINAGE, ANTIBIOTIC STARTED PER DR. THIBODEAUX'S ORDER, VOIDING ON TOILET. DAUGHTER PRESENT PROVIDING SUPPORT. SLOWLY PROGRESSING.
[2019-02-18 00:33] VITALS: BP 124/72
[2019-02-18 03:58] VITALS: BP 128/76
--- NOTE | 2019-02-18 04:37 | NUR ---
ASSESSMENT DOCUMENTED.PT RESTING AT THIS TIME.A/OX4.POST DRAIN PALCEMENT TO RUQ FOLLOWING LAP LING WITH LEAK.INCISIONS TO ABD SITES CDI.STERI STRIPS PRESENT.DRAIN TO RUQ DRAINING BILE DRAINAGE.PT C/O PAIN NOT CONTROLLED EARLIER IN THE SHIFT,GASOLINE TESTER NOTIFIED,NORCO ORDERED AND HYDROMOPHONE CHANGED FROM 0.25 MG TO 0.5MG.PAIN STILL RATING PAIN AT 6/10 ESPECIALLY AT DRAIN SITE.IVF ADN IV ANTIBIOTICS INFUSING PER ORDERS.UP WITH SBA TO BR,VOIDING ADEQUATELY.PT DENIES ANY FURTHER NEEDS AT THIS TIME.WILL CONTINUE TO MONITOR PER POC.
[2019-02-18 07:55] VITALS: BP 128/69
[2019-02-18 11:40] VITALS: BP 130/80
[2019-02-18 16:00] VITALS: BP 136/77
[2019-02-18 19:49] VITALS: BP 145/82
--- NOTE | 2019-02-18 23:36 | NUR ---
PT SLLEPING IN NO ACUTE DISTRESS AT THIS TIME.PT VSS SATBLE.PT C/O ITCHING TO FACE AND ABD AREAS.NOTED REDNESS TO FACE.TEXTILE DESIGNER NOTIFIED,DONNA ORDERED X1.PT SLEEPING AT THIS TIME. RUQ DRAINS IN PLACE,150CC OF BILE DRAINAGE OBTAINED. WILL CONT TO MONITOR.
[2019-02-19 00:08] LABS: GLYCOHEMOGLOBIN (HGB A1C) 5.4 % (4.8-5.6)
--- NOTE | 2019-02-19 01:45 | NUR ---
ASSESSMENTS CHARTED. TOOK OVER CARE AFTER PEDRO WAS FLOATED TO ICU. C/O PAIN AROUND 0100, MED GIVEN CHARTED. RIGHT UPPER QUADRANT DRAIN PATENT. PLAN OF CARE IS TO STAY IN THE HOSPITAL OVER THE WEEKEND. CONTINUE TREATMENT.
[2019-02-19 04:02] VITALS: BP 131/76
[2019-02-19 06:25] LABS: HEMATOCRIT 27.8 % (37.0-47.0); HEMOGLOBIN 9.5 gm/dL (12.0-15.0); MCH 30.9 pg (26.0-34.0); MCHC 34.2 g/dL (28.0-37.0); MCV 90.3 fL (80.0-100.0); RBC 3.08 mil/uL (4.20-5.00); RDW 13.5 % (10.5-14.5); WBC 7.3 thou/uL (4.0-11.0)
[2019-02-19 06:39] LABS: ALBUMIN 1.9 g/dL (3.4-5.0); CALCIUM 7.9 mg/dL (8.5-10.1); CREATININE 0.5 mg/dL (0.6-1.0); MAGNESIUM 1.7 mg/dL (1.8-2.4); TOTAL BILIRUBIN 0.5 mg/dL (<0.1-1.0); TOTAL PROTEIN 5.4 g/dL (6.4-8.2)
[2019-02-19 06:42] LABS: POTASSIUM 2.8 mmol/L (3.5-5.1)
[2019-02-19 07:30] VITALS: BP 136/73
[2019-02-19 11:45] VITALS: BP 134/90
[2019-02-19 16:05] VITALS: BP 137/84
[2019-02-19 17:28] LABS: MAGNESIUM 1.9 mg/dL (1.8-2.4); POTASSIUM 3.6 mmol/L (3.5-5.1)
--- NOTE | 2019-02-19 18:18 | NUR ---
ASSESSMENT CHARTED - MEDS PER JAN - GIVEN PAIN MEDS X 2 DOSES TODAY WITH LETTLE EFFECT ON ABDO PAIN. DRAIN REMAINS PRESENT TO R UPPER QUAD DRAINING BILE COLOURED DRAINAGE. PT STATED SHE HAD STOOL TODAY THAT WILL BILE COLOURED. CONSTANTINO DIET AND FLUIDS - PATIENT STATES SHE DOES NOT HAVE MUCH OF AN APPITITE. GIVEN ALT MENU SO THAT SHE MAY CHOOSE FOODS SHE FEELS SHE MAY BE BLE TO EAT - STATES REGUALR TRAYS ARE HEAVY IN HER STOMACH. UP AD PEEWEE IN ROOM - AMBULATED IN THE ALEXIS. NO CO'S AT THE PRESENT TIME.
[2019-02-19 19:45] VITALS: BP 144/84
--- NOTE | 2019-02-20 05:29 | NUR ---
ASSESSMENTS CHARTED. C/O PAIN 6-8 DURING SHIFT. 350MLS BILE OUT OF DRAIN. FLUID CULTURE CAME BACK POSITIVE FOR S.AUREUS. PLAN IS TO CONTINUE ABX TREATMENT.
[2019-02-20 07:30] VITALS: BP 135/94
[2019-02-20 15:45] VITALS: BP 128/75
--- NOTE | 2019-02-20 17:51 | NUR ---
VSS RA CLEAR, O2 SAT RA IS 98%. STILL C/O PAIN RUQ WHERE GB DRAIN IS, RELIEVED WITH DILAUDID AND NOW IV TOREDOL. GB DRAIN DRAINING 175 CC. UP IN ROOM WITHIOUT DIFF. APPETITE FAIR. WILL CONTINUE TO MONITER AND CARE FOR PTPER PLAN OF CARE
[2019-02-20 20:08] VITALS: BP 129/72
[2019-02-21] VITALS (13 sets, daily range): BP systolic 125–151; BP diastolic 72–90
--- NOTE | 2019-02-21 05:05 | NUR ---
PT POST OP LAB CHOLI. DRAINAGE BAG PRESENT ( SEE I& O) FOR OUT PUT. PT HAS PAIN IN THE ABD RUQ. DILAUDID , NORCO AND TORADOL GIVEN. PT DENIES NAUSEA, VOMITING OR DIARRHEA. ON CONTACT PRECAUTION FOR MRSA IN THE BILE FLUIDS. CONTINUES TO BE ON ABX VANCO. POSSIBLE DISCHARGE TODAY. WILL CONTINUE TO MONITOR.
[2019-02-21 05:39] LABS: HEMATOCRIT 27.3 % (37.0-47.0); HEMOGLOBIN 9.3 gm/dL (12.0-15.0); MCV 91.1 fL (80.0-100.0); RDW 14.1 % (10.5-14.5); WBC 6.3 thou/uL (4.0-11.0)
[2019-02-21] MEDS ORDERED: VANCO1GM IV (08:27)
[2019-02-21] MEDS ORDERED: HYDROCODONE-AP1 EAC6 PO (08:27)
[2019-02-21] MEDS ORDERED: LINEZOLID600 MG/300 IV (10:25)
--- NOTE | 2019-02-21 10:26 | NUR ---
FAXED REFERRAL TO [facility]. SPOKE WITH VETO IN INTAKE AND HE RECEIVED REFERRAL AND WILL REVIEW. NOTIFIED [facility] OF REFERRAL SPOKE WITH NAHUM IN ADM. SHE WILL REVIEW. PT. TO DISCHARGE TODAY. DCP TO FOLLOW.
--- NOTE | 2019-02-21 13:11 | NUR ---
PT. DISCHARGING TODAY TO HOME WITH [facility] FOR IV ZYVOX. NOTIFIED [facility] DC ORDERS ARE DONE NAHUM IN ADM. WILL NOTIFY PT. TIME OF VISITS. SPOKE WITH LES IN INTAKE AT [facility]. HE RECEIVED REFERRAL AND WILL BE ABLE TO ACCEPT HE IS SENDING A NURSE TO GO OVER IV ABX PRIOR TO DISCHARGE HOME. PT. IS COVERED 100%. DCP FAXED DC ORDERS/SUMMARY TO [facility].
--- NOTE | 2019-02-21 13:49 | NUR ---
VASCULAR ACCESS NURSE ROUNDING- THE PATIENT IS TO DISCHARGE WITH PICC FOR HOME IV ANTIBIOTICS. PICC LINE APPROPRIATE
--- NOTE | 2019-02-21 14:27 | NUR ---
Patient works at [employer] and [employer]. Order rec for home infusion. Patient to rec IC zyvox q12 at home. [facility] in network with insurance as well as [facility]. Patient with no preference for HH infusion/hh. dc marketing planner faxed referral to [facility]. room service clerk from [facility] came to see patient for instruction today. Zyvox first dose to be given in hospital at approx 1700. [facility] to have patient their first patient to see in am post dc to be avail for first home dose. Patient reports her dtr lives with her supportive and avail. [facility] reports post instruct patient will do well in home setting. dc marketing planner to update [facility] of timeframe of dc. Plan home later today. No further needs.
--- NOTE | 2019-02-21 16:56 | NUR ---
VSS PT ED TODAY ON HOME THERAPY WITH IV ANTIBIOTICS AND CARE OF GALLBLADDER DRAIN, F/UPS WITH DR PADILLA AND PRABHJOT. GOOD UNDERSTANDING. WILL CONTINUE TO MONITER AND CARE FOR PT PER PLAN OF CARE
--- NOTE | 2019-02-21 17:30 | NUR ---
PT RECEIVING 1ST DOSE OF ZYVOX STRTED AT 1730, 1/[address] [facility], PT CALLED TO SAY SHE WAS NAUSEATED, SEVERE CRAMPING, FLUSHED, EARS ON FIRE. TEMP 98.6. BP 160/70. DR RICK CALLED AND RECEIVED ORDERS TO CONTINUE ZYVOX AND PT WOULD NOT BE DISCAHRGED. PT GIVEN ZOFRAN FOR NAUSEA WITH EVENTUAL RELIEF OF NAUSEA. WILL CONTINUE TO MONITER
--- NOTE | 2019-02-22 05:41 | NUR ---
ASSUMED PT CARE AT 1900 WITH NO SIGN OF DISTRESS NOTED. PT IS ALERT AND ORIENTED. PT IS STABLE. SCHEDULED MEDS ADMINISTERD TO PT. ASSESSMENT DONE AND CHARTED. PT IS STABLE THROUGHOUT THE NIGHT. DENIES ANY NEEDS AT THIS TIME.
[2019-02-22 06:06] VITALS: BP 149/84
--- NOTE | 2019-02-22 07:55 | HC ---
[facility] [place] [address] CONSULTATION Name: NUSRAT PAZ Room #: 209-P ADM IN M.R.#: [id number] Admission: 02/16/19 ������������������ Attend Phys: Graham Argueta MD Discharge: ������������������ Date of : 70 Report #: [id number] THIS REPORT FOR: //name// CC: Ugo Argueta DATE OF SERVICE: 02/21/2019 ATTENDING PHYSICIAN: Dr. Argueta. CONSULTATION REQUESTED BY: Dr. Aden. REASON FOR CONSULTATION: MRSA bile. HISTORY OF PRESENT ILLNESS: A 48-year-old white woman underwent laparoscopic-assisted cholecystectomy on 02/10/2019, developed abdominal pain, diagnosed to have bile leak and biloma. She was percutaneously drained on 02/17/2019. Cultures revealed MRSA. Vancomycin started. Today, she is feeling 100% better. Actually, she tells me she is feeling a million percent better. Minimal pain, 2/10, controlled with Toradol. Anxious to go home. 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 SOCIAL HISTORY: , 2 children. DRUG ALLERGIES: SULFA - blisters. LEVOFLOXACIN -- blisters. MEDICATIONS: She is currently on treatment with vancomycin 1 gram IV every 8 hours, pantoprazole, metoprolol, magnesium supplementation per protocol, potassium supplementation per protocol, p.r.n. hydrocodone, hydromorphone, ondansetron, ketorolac. PAST MEDICAL HISTORY: Obesity. PAST SURGICAL HISTORY: History of question sleeve operation by Dr. Knight. Hysterectomy. Gastric sleeve in 2017. Hiatal hernia repair. FAMILY HISTORY: See H and P, old records. REVIEW OF SYSTEMS: Doing extremely well and essentially negative. PHYSICAL EXAMINATION: GENERAL: Well developed, not toxic looking woman. VITAL SIGNS: Temperature 98.6, pulse 66, respirations 17, BP 127/73, height 5 feet 9 inches, weight 230 pounds. HEENMT: Normal. NECK: Normal. [facility] [address] [place] [address] CONSULTATION Name: NUSRAT PAZ Room #: 209-[facility] IN .R.#: [id number] Admission: 02/16/19 ������������������ Attend Phys: Graham Argueta MD Discharge: ������������������ Date of : 70 Report #: [id number] BREASTS: Deferred. LUNGS: Crackles both bases, left greater than right. HEART: S1, S2. No gallop or murmur. ABDOMEN: Laparoscopic wound. Soft, not particularly tender. There is a right-sided percutaneous catheter draining nonturbid bile. PELVIC AND RECTAL: Deferred. EXTREMITIES: No clubbing, cyanosis. NEUROLOGIC: Within normal limits. LABORATORY DATA: O2 saturation normal at room air. Potassium 3.6, BUN 5, creatinine 0.5, glucose 68, total bilirubin initially 1.5, repeat 0.5, albumin low at 1.9. White blood cell count elevated up to 18,200, today is 6300; hemoglobin 9.3 g/dL and platelets 293,000. test negative. MICROBIOLOGY DATA: The bile culture revealed growth of many Staphylococcus aureus, oxacillin-resistant; sensitive to vancomycin SANYA 1 equal 1 and linezolid SANYA 2. RADIOLOGY EVALUATION: A large biloma on 02/17/2019 set to have significant improvement post drainage. A chest x-ray done on 02/16/2019 revealed left basilar infiltrate, atelectasis. We will need to repeat chest x-ray later and see if this has cleared. ASSESSMENT: 1. Status post laparoscopic cholecystectomy with bile leak, status post stenting and MRSA bile. 2. Anemia. 3. Hypoalbuminemia. 4. Left basilar infiltrate, atelectasis. 5. Right upper extremity PICC. 6. History of gastric sleeve, status post biliary stent and status post biloma percutaneously drainage. SUGGESTIONS: May discharge home and continue treatment with Zyvox 600 mg IV 2 times daily for 7 days. Mupirocin ointment ____ b.i.d. for 5-7 days., prescription written. Hibiclens soap for daily bathing, this is an bziy-ctv-jrrbmuz medication. We will need to have CBC, CMP, ESR, CRP done on and she should call me on Thursday to check results. Needs an ESR and CRP today and after all the things completed, may be discharged home. Dr. Aden, thank you for requesting my suggestions. ��������������������������������������������� <ELECTRONICALLY SIGNED> ���������������������������������������� By: Anthony rBowne MD ��������������������������������������������� 02/22/19 0755 1004 0209 Anthony Browne MD /nt
[2019-02-22 08:05] VITALS: BP 133/85
--- NOTE | 2019-02-22 10:46 | NUR ---
spoke with patient and RN. Patient with reaction to Zyvoxx last evening. She reports she feels better and sp with Dr Browne with plan to dc today and cont Zyvoxx. Sp with [facility] who reports they can be at home for next dose Zyvoxx at 1800 this evening. DC digital media planner to update infusion company for delivary of medication and supplies to home. No further needs
--- NOTE | 2019-02-22 11:50 | NUR ---
ASSESSMENT DOCUMENTED. VSS. DISCHARGE INSTRUCTIONS GIVEN. PICC IN PLACE AT DC FOR IV HOME ANTIBIOTICS. WILL CONTINUE TO MONITOR.
== END 2019-02-22 11:34 | disposition home health service (06) | DRG 394 ==
LOC: ER 10:21 → 2N 13:41 → EROBS 13:41 → 2N 15:18
PROVIDERS: Emergency Medicine; Hospitalist; Radiology Vascular & Interventional Radiology; ADMIT Internal Medicine
PROC: 02HV33Z Insertion of Infusion Device into Superior Vena Cava, Percutaneous Approach (ICD-10-PCS; principal; 2019-02-16)
PROC: 0H97X0Z Drainage of Abdomen Skin with Drainage Device, External Approach (ICD-10-PCS; 2019-02-17)
DX: K91.89 Other postprocedural complications and disorders of digestive system (principal); J98.11 Atelectasis; T81.61XA Aseptic peritonitis due to foreign substance accidentally left during a procedure, initial encounter; I10 Essential (primary) hypertension; K21.9 Gastro-esophageal reflux disease without esophagitis; G43.909 Migraine, unspecified, not intractable, without status migrainosus; G47.33 Obstructive sleep apnea (adult) (pediatric); F41.9 Anxiety disorder, unspecified; D64.9 Anemia, unspecified; E66.9 Obesity, unspecified; E88.09 Other disorders of plasma-protein metabolism, not elsewhere classified; B95.62 Methicillin resistant Staphylococcus aureus infection as the cause of diseases classified elsewhere; Z90.710 Acquired absence of both cervix and uterus; Z90.3 Acquired absence of stomach [part of]; Z88.1 Allergy status to other antibiotic agents; Z88.2 Allergy status to sulfonamides; Z68.33 Body mass index [BMI] 33.0-33.9, adult; Y83.6 Removal of other organ (partial) (total) as the cause of abnormal reaction of the patient, or of later complication, without mention of misadventure at the time of the procedure; Y92.89 Other specified places as the place of occurrence of the external cause
CPT/HCPCS: 10081

== ENCOUNTER → 2019-03-03 | Outpatient (CLI) | payer OTHER ==
[~2019-03-03] MED LIST changes: +LINEZOLID600 MG/300 IV; +NORCO 5-325 TA1 EACH PO; +VANCO1GM IV
== END ==
LOC: CAT 08:07
DX: K57.30 Diverticulosis of large intestine without perforation or abscess without bleeding (principal); J98.11 Atelectasis; I70.0 Atherosclerosis of aorta; M25.78 Osteophyte, vertebrae; M48.05 Spinal stenosis, thoracolumbar region; Z90.49 Acquired absence of other specified parts of digestive tract; Z90.710 Acquired absence of both cervix and uterus

== ENCOUNTER 2019-04-10 18:29 | Emergency (ER) | payer OTHER ==
[~2019-04-10] VITALS: Ht 175.3 cm; Wt 97.1 kg
[2019-04-10 19:09] LABS: ABSOLUTE NEUTROPHILS 3.3 thou/uL (1.4-8.2); BASOPHILS 0.8 % (0.0-2.0); EOSINOPHILS 1.9 % (0.0-3.0); HEMOGLOBIN 11.8 gm/dL (12.0-15.0); MCH 30.7 pg (26.0-34.0); MCHC 33.8 g/dL (28.0-37.0); MCV 90.7 fL (80.0-100.0); MONOCYTES 9.2 % (1.0-8.0); PLATELET COUNT 283 thou/uL (150-400); POLYS 50.1 % (36.0-66.0); RBC 3.86 mil/uL (4.20-5.00); RDW 14.9 % (10.5-14.5); WBC 6.7 thou/uL (4.0-11.0)
[2019-04-10 19:19] LABS: ANION GAP 11 mmol/L (7-16); BUN 14 mg/dL (7-18); CALCIUM 8.7 mg/dL (8.5-10.1); CHLORIDE 105 mmol/L (98-107); CO2 25 mmol/L (21-32); CREATININE 0.9 mg/dL (0.6-1.0); GLUCOSE 99 mg/dL (74-106); POTASSIUM 3.3 mmol/L (3.5-5.1); SODIUM 141 mmol/L (136-145)
[2019-04-10 19:29] LABS: ALBUMIN 3.7 g/dL (3.4-5.0); SGOT 10 U/L (15-37); SGPT 21 U/L (30-65); TOTAL BILIRUBIN 0.5 mg/dL (<0.1-1.0); TOTAL PROTEIN 6.9 g/dL (6.4-8.2); TROPONIN-I <0.06 ng/mL (<0.06)
[2019-04-10 19:55] LABS: URINE BILIRUBIN NEGATIVE (Negative); URINE BLOOD 2+ (Negative); URINE CLARITY SL CLOUDY; URINE COLOR ORANGE; URINE GLUCOSE-RANDOM* TRACE (Negative); URINE KETONES NEGATIVE (Negative); URINE LEUKOCYTES 2+ (Negative); URINE NITRITE POSITIVE (Negative); URINE PROTEIN (DIPSTICK) 1+ (Negative); URINE SPECIFIC GRAVITY 1.025 (1.005-1.035)
[2019-04-10 20:04] LABS: BACTERIA >30 Many /HPF (None Seen); SQUAMOUS 4-10 Moderate /LPF (0-3)
[2019-04-10 20:05] LABS: CASTS None Seen /LPF (None Seen); CRYSTALS None Seen /LPF (None Seen); URINE RBC 0-2 Rare /HPF (0-2); URINE WBC >25 Many /HPF (0-5)
[2019-04-10] MEDS ORDERED: KEFLEX500 M1 PO (21:10)
[2019-04-10 21:57] VITALS: BP 123/69
--- NOTE | 2019-04-11 08:48 | EKG ---
[address] [place] [address] ELECTROCARDIOGRAM REPORT Name: NUSRAT PAZ [id number] ������������������ Admission: 04/10/19 ������������������ Attend Phys: Discharge: 04/10/19 ������������������ Date of : 70 Report #: [id number] ����������������������������������������������������������������� [id number] THIS REPORT FOR: //name// [facility] ED Test Date: 2019-04-10 Test Time: 19:01:56 Pat Name: NUSRAT PAZ Department: Room: Gender: F Systems Integration Advisor: REMI : 1970 Requested By: Jaymie Queen Order Number: [id number] MD: Floyd Browne Measurements Intervals [place] Rate: 72 P: 21 WI: 158 QRS: -31 QRSD: 89 T: 15 QT: 403 QTc: 442 Interpretive Statements Sinus rhythm Low voltage, precordial leads Left ventricular hypertrophy Anterior Q waves, possibly due to LVH Compared to ECG 03/30/2017 15:31:45 Low QRS voltage now present Q waves now present Electronically Signed On 04-11-2019 8:47:54 CDT by Floyd Browne [email or web address] ��������������������������������������������� <ELECTRONICALLY SIGNED> ���������������������������������������� By: Floyd Browne MD ��������������������������������������������� 04/11/19 0847 190 00 Floyd Browne MD /EPI
== END 2019-04-10 21:58 | disposition home or self-care (01) ==
LOC: ER 18:29
PROVIDERS: Physician Assistant
DX: R55 Syncope and collapse (principal); N39.0 Urinary tract infection, site not specified; E16.2 Hypoglycemia, unspecified; I10 Essential (primary) hypertension; K21.9 Gastro-esophageal reflux disease without esophagitis; G47.30 Sleep apnea, unspecified; G43.909 Migraine, unspecified, not intractable, without status migrainosus; Z90.710 Acquired absence of both cervix and uterus; Z98.890 Other specified postprocedural states; Z90.49 Acquired absence of other specified parts of digestive tract; Z88.2 Allergy status to sulfonamides; Z88.1 Allergy status to other antibiotic agents

== ENCOUNTER 2019-05-26 17:19 | Emergency (ER) | payer OTHER ==
[~2019-05-26] VITALS: Ht 175.3 cm; Wt 103.9 kg
[~2019-05-26 17:19] MED LIST changes: +KEFLEX500 M1 PO
[2019-05-26 17:50] LABS: ABSOLUTE NEUTROPHILS 7.1 thou/uL (1.4-8.2); BASOPHILS 0.7 % (0.0-2.0); HEMOGLOBIN 13.1 gm/dL (12.0-15.0); LYMPHOCYTES 15.7 % (24.0-44.0); MCH 31.7 pg (26.0-34.0); MCHC 33.7 g/dL (28.0-37.0); MCV 94.3 fL (80.0-100.0); MONOCYTES 5.7 % (1.0-8.0); PLATELET COUNT 284 thou/uL (150-400); POLYS 76.9 % (36.0-66.0); RBC 4.14 mil/uL (4.20-5.00); RDW 15.4 % (10.5-14.5); WBC 9.3 thou/uL (4.0-11.0)
[2019-05-26 17:55] LABS: ANION GAP 10 mmol/L (7-16); BUN 13 mg/dL (7-18); CHLORIDE 106 mmol/L (98-107); CO2 25 mmol/L (21-32); CREATININE 0.9 mg/dL (0.6-1.0); GLUCOSE 125 mg/dL (74-106); POTASSIUM 3.8 mmol/L (3.5-5.1); SODIUM 141 mmol/L (136-145)
[2019-05-26 18:04] LABS: TROPONIN-I <0.06 ng/mL (<0.06)
[2019-05-26] MEDS ORDERED: CYCLOBENZAPRINE5 MG PO (18:46)
[2019-05-26 22:30] VITALS: BP 133/82
--- NOTE | 2019-05-29 18:06 | EKG ---
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: : 1970 Requested By: Mansoor Fuller Order Number: [id number] MD: Santiago Roach Measurements Intervals [place] Rate: 105 P: 33 NC: 172 QRS: -51 QRSD: 86 T: 33 QT: 333 QTc: 441 Interpretive Statements Sinus tachycardia RSR' in V1 or V2, probably normal variant Left anterior hemiblock Poor R wave progression Compared to ECG 04/10/2019 19:01:56 heart rate has increased Left ventricular hypertrophy no longer present Electronically Signed On 05-29-2019 18:06:42 CDT by Santiago Roach [email or web address] ��������������������������������������������� <ELECTRONICALLY SIGNED> ���������������������������������������� By: Santiago Roach MD, [facility] ��������������������������������������������� 05/29/19 1806 1726 172 Santiago Roach MD, [facility] /EPI
== END 2019-05-26 22:31 | disposition home or self-care (01) ==
LOC: ER 17:19
PROVIDERS: Nurse Practitioner
DX: G43.909 Migraine, unspecified, not intractable, without status migrainosus (principal); R07.89 Other chest pain; I10 Essential (primary) hypertension; K21.9 Gastro-esophageal reflux disease without esophagitis; G47.30 Sleep apnea, unspecified; Z90.49 Acquired absence of other specified parts of digestive tract; Z90.89 Acquired absence of other organs; Z90.710 Acquired absence of both cervix and uterus; Z88.1 Allergy status to other antibiotic agents; Z88.2 Allergy status to sulfonamides; Z98.890 Other specified postprocedural states

== ENCOUNTER 2019-08-08 06:06 | Emergency (ER) | payer OTHER ==
[~2019-08-08] VITALS: Ht 175.3 cm; Wt 104.3 kg
[~2019-08-08 06:06] MED LIST changes: +CYCLOBENZAPRINE5 MG PO
[2019-08-08] MEDS ORDERED: SENNA-DOCUSATE1 EAC1 PO (06:58)
[2019-08-08] MEDS ORDERED: NORCO 5-325 TA1 EAC1 PO (06:58)
[2019-08-08 07:23] VITALS: BP 139/92
== END 2019-08-08 07:23 | disposition home or self-care (01) ==
LOC: ER 06:06
DX: S92.002A Unspecified fracture of left calcaneus, initial encounter for closed fracture (principal); K21.9 Gastro-esophageal reflux disease without esophagitis; G47.30 Sleep apnea, unspecified; G43.909 Migraine, unspecified, not intractable, without status migrainosus; I10 Essential (primary) hypertension; Z88.1 Allergy status to other antibiotic agents; Z88.2 Allergy status to sulfonamides; Z90.49 Acquired absence of other specified parts of digestive tract; Z90.710 Acquired absence of both cervix and uterus; Z90.89 Acquired absence of other organs; W10.9XXA Fall (on) (from) unspecified stairs and steps, initial encounter; Y92.89 Other specified places as the place of occurrence of the external cause; Y93.89 Activity, other specified; Y99.8 Other external cause status

== ENCOUNTER 2019-11-29 10:02 | Emergency (ER) | payer OTHER ==
[~2019-11-29] VITALS: Ht 172.7 cm; Wt 104.3 kg
[~2019-11-29 10:02] MED LIST changes: +NORCO 5-325 TA1 EAC1 PO; +SENNA-DOCUSATE1 EAC1 PO
[2019-11-29] MEDS ORDERED: AMLODIPINE-BEN1 EACH PO (10:34)
[2019-11-29] MEDS ORDERED: GLUCOSE4 GM PO (11:13)
[2019-11-29 11:19] LABS: HEMATOCRIT 39.1 % (37.0-47.0); HEMOGLOBIN 12.8 gm/dL (12.0-15.0); MCH 30.6 pg (26.0-34.0); MCHC 32.8 g/dL (28.0-37.0); MCV 93.4 fL (80.0-100.0); RBC 4.18 mil/uL (4.20-5.00); WBC 5.1 thou/uL (4.0-11.0)
[2019-11-29 11:21] LABS: ANION GAP 9 mmol/L (7-16); BUN 8 mg/dL (7-18); CALCIUM 8.7 mg/dL (8.5-10.1); CHLORIDE 106 mmol/L (98-107); CO2 27 mmol/L (21-32); CREATININE 0.8 mg/dL (0.6-1.0); GLUCOSE 180 mg/dL (74-106); POTASSIUM 3.2 mmol/L (3.5-5.1); SODIUM 142 mmol/L (136-145)
[2019-11-29 11:31] LABS: ALBUMIN 3.8 g/dL (3.4-5.0); SGOT 15 U/L (15-37); SGPT 25 U/L (30-65); TOTAL BILIRUBIN 0.4 mg/dL (<0.1-1.0); TROPONIN-I <0.06 ng/mL (<0.06)
[2019-11-29 12:50] VITALS: BP 135/90
--- NOTE | 2019-11-29 19:49 | EKG ---
[address] [place] [address] ELECTROCARDIOGRAM REPORT Name: PAZKYELNUSRAT ELOISA [facility] [id number] Admission: 11/29/19 Attend Phys: Discharge: 11/29/19 Date of : 70 Report #: [id number] THIS REPORT FOR: //name// [facility] ED Test Date: 2019-11-29 Test Time: 10:20:51 Pat Name: NUSRAT PAZ Department: Room: Gender: F Tower Operator: MISTY : 1970 Requested By: Urban Urias Order Number: [id number] MD: Santiago Roach Measurements Intervals [place] Rate: 94 P: 41 IN: 174 QRS: -53 QRSD: 101 T: 26 QT: 367 QTc: 459 Interpretive Statements Sinus rhythm Left anterior fascicular block Abnormal R-wave progression, late transition Left ventricular hypertrophy Compared to ECG 05/26/2019 17:26:10 No significant change was found Electronically Signed On 11-29-2019 19:48:58 COFFEE SHOP MANAGER by Santiago Roach [email or web address] <ELECTRONICALLY SIGNED> By: Santiago Roach MD, [facility] 11/29/191947 1020 1020 Santiago Roach MD, [facility] /EPI
== END 2019-11-29 12:50 | disposition home or self-care (01) ==
LOC: ER 10:02
PROVIDERS: Emergency Medicine
DX: R00.2 Palpitations (principal); R42 Dizziness and giddiness; I10 Essential (primary) hypertension; K21.9 Gastro-esophageal reflux disease without esophagitis; G47.30 Sleep apnea, unspecified; G43.909 Migraine, unspecified, not intractable, without status migrainosus; Z90.49 Acquired absence of other specified parts of digestive tract; Z90.710 Acquired absence of both cervix and uterus; Z88.1 Allergy status to other antibiotic agents; Z88.2 Allergy status to sulfonamides

== ENCOUNTER 2020-04-01 12:21 | Emergency (ER) | payer OTHER ==
[~2020-04-01] VITALS: Ht 172.7 cm; Wt 110.2 kg
[~2020-04-01 12:21] MED LIST changes: +AMLODIPINE-BEN1 EACH PO; +GLUCOSE4 GM PO; +VITAMIN D35000 UNI2 PO
[2020-04-01 14:45] VITALS: BP 151/90
== END 2020-04-01 15:23 | disposition still patient (30) ==
LOC: ER 12:21
DX: B34.9 Viral infection, unspecified (principal); Z20.828 Contact with and (suspected) exposure to other viral communicable diseases; R19.7 Diarrhea, unspecified; I10 Essential (primary) hypertension; K21.9 Gastro-esophageal reflux disease without esophagitis; G43.909 Migraine, unspecified, not intractable, without status migrainosus; Z90.711 Acquired absence of uterus with remaining cervical stump; Z90.49 Acquired absence of other specified parts of digestive tract; Z90.89 Acquired absence of other organs; Z90.3 Acquired absence of stomach [part of]; Z98.890 Other specified postprocedural states; Z79.899 Other long term (current) drug therapy; Z88.1 Allergy status to other antibiotic agents; Z88.2 Allergy status to sulfonamides

== ENCOUNTER → 2020-08-10 | Outpatient (CLI) | payer OTHER | LOC: LAB 09:04 | PROVIDERS: ATTEND Family Medicine | DX: Z20.828 Contact with and (suspected) exposure to other viral communicable diseases (principal) ==

== ENCOUNTER → 2020-11-27 | Outpatient (CLI) | payer OTHER | LOC: LAB 11:50 | PROVIDERS: ATTEND Nurse Practitioner | DX: Z20.822 Contact with and (suspected) exposure to COVID-19 (principal) ==

== ENCOUNTER → 2021-04-30 | Outpatient (CLI) | payer OTHER | LOC: MRI 09:07 | PROVIDERS: ATTEND Orthopaedic Surgery | DX: S83.241A Other tear of medial meniscus, current injury, right knee, initial encounter (principal); M25.461 Effusion, right knee; M25.861 Other specified joint disorders, right knee; X58.XXXA Exposure to other specified factors, initial encounter; Y93.89 Activity, other specified; Y92.89 Other specified places as the place of occurrence of the external cause; Y99.8 Other external cause status ==

== ENCOUNTER 2021-06-11 05:33 | Emergency (ER) | payer OTHER ==
[~2021-06-11] VITALS: Ht 172.7 cm; Wt 104.3 kg
[2021-06-11] MEDS ORDERED: TRAZODONE HCL100 MG PO (06:08)
[2021-06-11 07:00] VITALS: BP 160/90
[2021-06-13] MEDS ORDERED: AIMOVIG AU70 MG/1 ML IM (11:48)
== END 2021-06-11 07:03 | disposition home or self-care (01) ==
LOC: ER 05:33
PROVIDERS: Emergency Medicine
DX: J06.9 Acute upper respiratory infection, unspecified (principal); I10 Essential (primary) hypertension; K21.9 Gastro-esophageal reflux disease without esophagitis; G43.909 Migraine, unspecified, not intractable, without status migrainosus; Z20.822 Contact with and (suspected) exposure to COVID-19; Z90.710 Acquired absence of both cervix and uterus; Z90.89 Acquired absence of other organs; Z79.891 Long term (current) use of opiate analgesic; Z79.899 Other long term (current) drug therapy; Z88.2 Allergy status to sulfonamides; Z88.8 Allergy status to other drugs, medicaments and biological substances

== ENCOUNTER 2021-06-17 06:58 | Day surgery (SDC) | payer OTHER ==
[~2021-06-17] VITALS: Ht 172.7 cm; Wt 102.1 kg
[~2021-06-17 06:58] MED LIST changes: +AIMOVIG AU70 MG/1 ML IM; +TRAZODONE HCL100 MG PO
[2021-06-17 08:32] VITALS: BP 134/73
--- NOTE | 2021-06-17 11:09 | EKG ---
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: RADHA : 1970 Requested By: Onofre Momin Order Number: [id number] MD: James Orellana Measurements Intervals [place] Rate: 71 P: 39 HI: 174 QRS: -45 QRSD: 95 T: 17 QT: 411 QTc: 447 Interpretive Statements Sinus rhythm Abnormal R-wave progression, late transition Left ventricular hypertrophy Compared to ECG 11/29/2019 10:20:51 No significant changes Electronically Signed On 06-17-2021 11:08:53 CDT by James Orellana [email or web address] <ELECTRONICALLY SIGNED> By: James Orellana MD, [facility] 06/17/21 1108 3 3 James Orellana MD, FAC /EPI
[2021-06-17 11:13] VITALS: BP 134/73
--- NOTE | 2021-06-18 07:40 | O ---
[facility] [place] [address] OPERATIVE REPORT Name: NUSRAT PAZ Room #: DEP [facility] M..#: [id number] Admission: 06/17/21 Attend Phys: Onofre Momin MD Discharge: 06/17/21 Date of : 70 Report #: [id number] THIS REPORT FOR: cc: Ugo Montgomery James A. DO Clymer, David J. 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 PROCEDURE: Right knee arthroscopy with debridement of patellofemoral chondromalacia and partial medial meniscectomy. SURGEON: Onofre Momin MD INDICATIONS: This active 50-year-old female has a long history of intermittent progressive right knee pain. She underwent arthroscopic debridement 5 or 6 years ago and at that time apparently was found to have some medial meniscus damage, which was debrided. 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 She is having some persistent and progressive knee pain equally at the patella and along the medial joint line. Preoperative MRI study confirms some degenerative patellar chondromalacia as well as some chronic irregular tearing of the medial meniscus. Given these findings and symptoms, we have elected to go ahead with repeat arthroscopy. DESCRIPTION OF PROCEDURE: The patient was taken to the operating room where she was placed under general anesthesia. Prophylactic intravenous antibiotics were administered. The right knee and leg were meticulously prepped and draped. A thigh tourniquet was applied and inflated to 300 mmHg. A lateral suprapatellar inflow cannula was placed. The knee was inflated with normal saline. The arthroscope and probe were introduced through parapatellar tendon approaches. The various compartments were sequentially visualized and documented with arthroscopic photography. Initially, there was some synovial hypertrophy and a moderate-sized patella plica, which was resected primarily for visualization. There was small amount of loose cartilage debris in the joint, which was evacuated. Initial evaluation of the patellofemoral articulation revealed a deep irregular fissure in the deepest portion of the trochlea. This was gently debrided removing a moderate amount of loose degenerative delaminating cartilage. The sidewalls of the trochlea were still in good shape and the patella seemed to [address] [address] OPERATIVE REPORT Name: NUSRAT PAZ Room #: DEP [facility] Christal#: [id number] Admission: 06/17/21 Attend Phys: Onofre Momin MD Discharge: 06/17/21 Date of : 70 Report #: [id number] track nicely. The patella itself revealed some degenerative fraying principally at the medial facet; however, this was only cvpk-hz-hncebfzz and limited debridement there was necessary. The remainder of the cartilage surface on the patella was in good shape and it seems the primary issue is the trochlea damage, which is moderate and looked improved once debrided. The intercondylar notch reveals the cruciate ligaments to be present and functioning normally. No debridement that was necessary. The lateral compartment reveals good cartilage on both the lateral femoral condyles and the lateral tibial plateau. The lateral meniscus appears to be intact and stable. Only very limited debridement that was necessary. The medial compartment was somewhat difficult to evaluate as the compartment is moderately tight making assessment in the posterior aspect difficult. However, there was evidence of some chronic degenerative tearing in the mid and posterior aspect of the medial meniscus with what appeared to be a loose irregular flap tear at the posterior aspect. This area was debrided using a rotary shaver. The meniscus was trimmed back to a more smooth outer margin, leaving about the outer one half of the meniscus intact. The mid and anterior portion of the medial meniscus were much better shape and no debridement that was necessary. The cartilage surfaces on both the medial femoral condyles and medial tibial plateau were in good shape with only minor fissuring and grooving. Very limited debridement was necessary. The entire knee was copiously irrigated. All excess fluid was evacuated from the knee. The knee was injected with 80 mg of Depo-Medrol and 30 mL of 0.5% Marcaine with epinephrine. The puncture sites were closed with interrupted nylon suture. A sterile dressing was applied. The patient was awakened and returned to recovery room in good condition. <ELECTRONICALLY SIGNED> By: Onofre Momin MD 06/18/21 0740 0936 1008 Onofre Momin MD /nt
== END 2021-06-17 13:30 | disposition home or self-care (01) ==
LOC: OR → TBA 07:00 → OR 11:16
PROVIDERS: ATTEND Orthopaedic Surgery
DX: M25.561 Pain in right knee (principal); M23.231 Derangement of other medial meniscus due to old tear or injury, right knee; M22.41 Chondromalacia patellae, right knee; I10 Essential (primary) hypertension; G43.909 Migraine, unspecified, not intractable, without status migrainosus; K21.9 Gastro-esophageal reflux disease without esophagitis; Z98.890 Other specified postprocedural states; Z79.899 Other long term (current) drug therapy; Z90.710 Acquired absence of both cervix and uterus; Z90.49 Acquired absence of other specified parts of digestive tract; Z98.84 Bariatric surgery status; Z20.822 Contact with and (suspected) exposure to COVID-19
CPT/HCPCS: 50010; 50101; 50405; 56526; 57103; 57180; 57255; 58577; 58589; 62110; 62900; 70005

== ENCOUNTER 2021-08-12 14:33 | Emergency (ER) | payer OTHER ==
[~2021-08-12] VITALS: Ht 172.7 cm; Wt 103.4 kg
[2021-08-12 14:37] VITALS: BP 133/83
== END 2021-08-12 15:10 | disposition home or self-care (01) ==
LOC: ER 14:33
DX: R51.9 Headache, unspecified (principal); I10 Essential (primary) hypertension; K21.9 Gastro-esophageal reflux disease without esophagitis; G43.909 Migraine, unspecified, not intractable, without status migrainosus; Z79.899 Other long term (current) drug therapy; Z90.710 Acquired absence of both cervix and uterus; Z90.49 Acquired absence of other specified parts of digestive tract; Z90.89 Acquired absence of other organs; Z88.2 Allergy status to sulfonamides; Z88.1 Allergy status to other antibiotic agents

== ENCOUNTER 2021-10-23 02:03 | Emergency (ER) | payer OTHER ==
[~2021-10-23] VITALS: Ht 172.7 cm; Wt 99.3 kg
[2021-10-23 03:34] LABS: ABSOLUTE NEUTROPHILS 3.7 thou/uL (1.4-8.2); BASOPHILS 0.9 % (0.0-2.0); EOSINOPHILS 1.9 % (0.0-3.0); HEMATOCRIT 40.9 % (37.0-47.0); HEMOGLOBIN 13.9 gm/dL (12.0-15.0); LYMPHOCYTES 39.2 % (24.0-44.0); MCH 32.1 pg (26.0-34.0); MCV 94.4 fL (80.0-100.0); MONOCYTES 8.8 % (1.0-8.0); PLATELET COUNT 348 thou/uL (150-400); POLYS 49.2 % (36.0-66.0); RBC 4.33 mil/uL (4.20-5.00); RDW 13.4 % (10.5-14.5); WBC 7.5 thou/uL (4.0-11.0)
[2021-10-23 04:21] LABS: CALCIUM 8.7 mg/dL (8.5-10.1); CREATININE 0.8 mg/dL (0.6-1.0)
[2021-10-23 04:31] LABS: ALBUMIN 3.4 g/dL (3.4-5.0); TOTAL BILIRUBIN 0.4 mg/dL (0.2-1.0); TOTAL PROTEIN 6.7 g/dL (6.4-8.2)
[2021-10-23 05:33] VITALS: BP 106/61
--- NOTE | 2021-10-23 07:52 | EKG ---
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 Assistant: ricardo vance : 1970 Requested By: Andrez Francis Order Number: [id number] MD: Santiago Roach Measurements Intervals [place] Rate: 71 P: 26 TN: 149 QRS: -48 QRSD: 102 T: 37 QT: 421 QTc: 458 Interpretive Statements Sinus rhythm Left anterior fascicular block Left ventricular hypertrophy Anterior Q waves, possibly due to LVH Compared to ECG 06/17/2021 07:34:36 No significant change was found Electronically Signed On 10-23-2021 7:52:27 HAND UMBRELLA TIPPER by Santiago Roach [email or web address] <ELECTRONICALLY SIGNED> By: Santiago Roach MD, [facility] 10/23/21 0752 5 5 Santiago Roach MD, FAC /EPI
== END 2021-10-23 05:34 | disposition home or self-care (01) ==
LOC: ER 02:03
PROVIDERS: Emergency Medicine
DX: J06.9 Acute upper respiratory infection, unspecified (principal); Z20.822 Contact with and (suspected) exposure to COVID-19; G43.909 Migraine, unspecified, not intractable, without status migrainosus; R05.9 Cough, unspecified; J02.9 Acute pharyngitis, unspecified; I10 Essential (primary) hypertension; Z90.49 Acquired absence of other specified parts of digestive tract; Z90.710 Acquired absence of both cervix and uterus; Z90.89 Acquired absence of other organs; Z86.16 Personal history of COVID-19; Z79.899 Other long term (current) drug therapy; Z79.891 Long term (current) use of opiate analgesic; Z88.2 Allergy status to sulfonamides; Z88.8 Allergy status to other drugs, medicaments and biological substances

== ENCOUNTER → 2021-11-19 | Outpatient (CLI) | payer OTHER ==
[2021-11-19 19:59] LABS: ABSOLUTE NEUTROPHILS 3.7 thou/uL (1.4-8.2); BASOPHILS 0.8 % (0.0-2.0); EOSINOPHILS 2.3 % (0.0-3.0); HEMATOCRIT 36.2 % (37.0-47.0); HEMOGLOBIN 12.2 gm/dL (12.0-15.0); LYMPHOCYTES 34.6 % (24.0-44.0); MCHC 33.7 g/dL (28.0-37.0); MONOCYTES 8.6 % (1.0-8.0); PLATELET COUNT 258 thou/uL (150-400); POLYS 53.7 % (36.0-66.0); RBC 3.81 mil/uL (4.20-5.00); RDW 13.4 % (10.5-14.5); WBC 6.8 thou/uL (4.0-11.0)
[2021-11-19 20:26] LABS: ALBUMIN 3.6 g/dL (3.4-5.0); CALCIUM 8.5 mg/dL (8.5-10.1); CREATININE 0.6 mg/dL (0.6-1.0); POTASSIUM 3.8 mmol/L (3.5-5.1); TOTAL BILIRUBIN 0.3 mg/dL (0.2-1.0); TOTAL PROTEIN 6.6 g/dL (6.4-8.2)
[2021-11-20 21:06] LABS: IgA 115 mg/dL (87-352); IgG 640 mg/dL (586-1602); IgM 129 mg/dL (26-217)
[2021-11-20 23:06] LABS: LUTEINIZING HORMONE (LH) 3.7 mIU/mL (()); TESTOSTERONE* < 3 ng/dL (4-50)
== END ==
LOC: LAB 16:37
PROVIDERS: ATTEND Nurse Practitioner
DX: N91.2 Amenorrhea, unspecified (principal); D83.9 Common variable immunodeficiency, unspecified

== ENCOUNTER → 2021-11-25 | Outpatient (CLI) | payer OTHER | LOC: CAT 14:26 | PROVIDERS: ATTEND Specialist | DX: J32.9 Chronic sinusitis, unspecified (principal); R51.9 Headache, unspecified ==